=== PATIENT | female | born 1965 | race Caucasian/White ===

== ENCOUNTER 2018-06-25 05:36 | Emergency (ER) | payer BC ==
[2018-06-25] MEDS ORDERED: Famotidine 20 MG Tab PO ONE (05:54)
[2018-06-25] MEDS ORDERED: predniSONE 20 MG Tab PO ONE (05:54)
--- NOTE | 2018-06-25 05:54 | EDM.PDOC ---
<Herman Dumont - Last Filed: 06/25/18 06:55> ED HPI GENERAL MEDICAL PROBLEM - General Chief Complaint: ENT Problem Stated Complaint: THROAT IS SWOLLEN & SORE Time Seen by Provider: 06/25/18 05:44 - History of Present Illness INITIAL COMMENTS - FREE TEXT/NARRATIVE: 52-year-old female presents emergency room with a sore throat and throat tightness This started last night around 10:00 she noticed some discomfort in her throat and some tightness. This improved a little around 3:00 this morning but minimally. She's not had any fevers or chills. She has not had any recent illness. She's been around some people had a cough but she has not come down with this. Patient has difficult to control type 2 diabetes. Throat Pain Score (Numeric/FACES): 10 - Related Data Allergies Allergy/AdvReac Type Severity Reaction Status Date / Time No Known Allergies Allergy Verified 06/25/18 05:47 Home Meds: Home Meds Ergocalciferol (Vitamin D2) [Vitamin D2] 50,000 units PO WEEKLY 06/25/18 [ History] Famotidine [Heartburn Prevention] 40 mg PO Q24H #6 tablet 06/25/18 [Rx] Insulin Glarg,Human.Rec.Analog [Lantus Solostar] 70 unit SUBCUT BEDTIME [History] Insulin Lispro [Humalog Kwikpen U-100] 20 units SUBCUT TID 06/25/18 [History] predniSONE [Prednisone] 20 mg PO Q12H #20 tablet 06/25/18 [Rx] ED ROS ENT - Review of Systems Review Of Systems: See Below Constitutional: Reports: No Symptoms. Denies: Fever, Chills HEENT: Reports: Throat Pain Respiratory: Denies: Shortness of Breath, Cough, Sputum Cardiovascular: Reports: No Symptoms Endocrine: Reports: No Symptoms GI/Abdominal: Reports: No Symptoms : Reports: No Symptoms Neurological: Reports: No Symptoms ED EXAM, ENT - Physical Exam Exam: See Below Exam Limited By: No Limitations General Appearance: Alert, No Apparent Distress Eye Exam: Bilateral Eye: Normal Inspection Nose: Normal Inspection, Nasal Discharge Mouth/Throat: Normal Gums, Normal Lips, Other (Some worn dentition no acute problems history of pharynx is minimally erythematous tonsils are minimally enlarged no asymmetry) Head: Atraumatic, Normocephalic Neck: Normal Inspection, Supple, Non-Tender, Full Range of Motion. No: Lymphadenopathy (L), Lymphadenopathy (R) Respiratory/Chest: No Respiratory Distress, Lungs Clear, Normal Breath Sounds, No Accessory Muscle Use Cardiovascular: Normal Peripheral Pulses, Regular Rate, Rhythm, No Murmur GI/Abdominal: Normal Bowel Sounds, Soft, Non-Tender Back: Normal Inspection. No: CVA Tenderness (L), CVA Tenderness (R) Neurological: Alert, Oriented, Normal Cognition Course - Vital Signs Last Recorded V/S: Last Vital Signs Temp 35.6 C 06/25/18 05:43 Pulse 88 06/25/18 05:43 Resp 20 06/25/18 05:43 BP 158/100 H 06/25/18 05:43 Pulse Ox 99 06/25/18 05:43 - Orders/Labs/Meds Orders: Active Orders 24 hr Category Date Time Status CULTURE STREP A CONFIRMATION [] Stat Lab 06/25/18 05:54 Results STREP SCRN A RAPID W CULT CONF [] Stat Lab 06/25/18 05:54 Results Meds: Medications Discontinued Medications Generic Name Dose Route Start Last Admin Trade Name Freq PRN Reason Stop Dose Admin Diphenhydramine HCl 25 mg 06/25/18 06:11 06/25/18 06:24 Benadryl PO 06/25/18 06:12 25 mg ONETIME ONE Administration Famotidine 40 mg 06/25/18 05:54 06/25/18 06:02 Pepcid PO 06/25/18 05:55 40 mg ONETIME ONE Administration Prednisone 60 mg 06/25/18 05:54 06/25/18 06:02 Prednisone PO 06/25/18 05:55 60 mg ONETIME ONE Administration - Re-Assessments/Exams Free Text/Narrative Re-Assessment/Exam: 06/25/18 06:52 Return to the emergency room with any questions problems worsening symptoms. Rapid strep is negative but there is a confirmatory culture pending this takes 48 hours to get back. This sensation in her throat could also be related to a allergic reaction, you' ve been started on prednisone continue the prednisone 40 mg starting Wednesday morning for 3 days. Take the famotidine, or Pepcid, one twice daily for at least 1 week. Use Benadryl 25 mg every 6 hours if needed. Departure - Departure Time of Disposition: 06:55 Disposition: Home, Self-Care 01 Clinical Impression: Viral pharyngitis - Discharge Information Prescriptions: Famotidine [Heartburn Prevention] 40 mg PO Q24H #6 tablet predniSONE [Prednisone] 20 mg PO Q12H #20 tablet Referrals: Shelley Morgan PA-C [Primary Care Provider] - Forms: ED Department Discharge Additional Instructions: You were seen in the emergency room for the sensation of throat swelling. Workup in the ER included a rapid strep test, which returned negative. You do not have strep throat. On examination, no actual throat swelling was found. Based on your history, physical exam, and rapid strep test, you are most likely suffering from viral pharyngitis or postnasal drip, causing the sensation of throat swelling, without actually having any throat swelling. Consider drinking tea with honey or sucking on throat lozenges. If your symptoms persist, please follow-up with your PCP, Shelley Morgan. If any other problems, please do not hesitate to return to the ER. <Leondies Zamorano - Last Filed: 06/25/18 07:25> Course - Re-Assessments/Exams Free Text/Narrative Re-Assessment/Exam: 06/25/18 07:[address] Dumont. I examined the patient, and, like Dr. Dumont , I see no anatomic abnormality with the patient's throat, such as erythema or swelling. Her rapid strep test is negative. She states that she is feeling considerably better than when she arrived. I suspect that the patient has the sensation of throat swelling, without actually having any throat swelling. She is likely suffering from a viral URI or postnasal drip, although acid reflux is also a possibility. I will discharge her home. Departure - Departure Condition: Good - Discharge Information *PRESCRIPTION DRUG MONITORING PROGRAM REVIEWED*: Not Applicable *COPY OF PRESCRIPTION DRUG MONITORING REPORT IN PATIENT ODILIA: Not Applicable
[2018-06-25] MEDS ORDERED: diphenhydrAMINE 25 MG Cap PO ONE (06:11)
== END 2018-06-25 07:34 | disposition home or self-care (01) ==
LOC: JD.ED 05:36
DX: J02.9 Acute pharyngitis, unspecified (principal); Z79.4 Long term (current) use of insulin
CPT/HCPCS: 87081; 87430; 99283; A9270

== ENCOUNTER 2018-11-01 07:07 | Day surgery (SDC) | payer OTHER ==
[2018-11-01] MEDS ORDERED: Lidocaine 1% 4 ML ONE (07:36)
[2018-11-01] MEDS ORDERED: fentaNYL 100 MCG/2 ML SDV ONE (07:36)
[2018-11-01] MEDS ORDERED: Propofol 200 MG/20 ML SDV ONE (07:36)
[2018-11-01] MEDS ORDERED: Sodium Chloride 0.9% 10 ML Syringe FLUSH PRN (07:59)
[2018-11-01] MEDS ORDERED: Lidocaine 1%/Sod Bicarbonate in NS 8.4% 1 ML Syringe IDERM PRN (07:59)
[2018-11-01] MEDS ORDERED: Lactated Ringers 1,000 ML IV SCH (08:00)
--- NOTE | 2018-11-01 08:17 | PCM.PREANE ---
Preanesthetic Assessment - Anesthesia/Transfusion/Family Hx Anesthesia History: Prior Anesthesia Without Reaction Family History of Anesthesia Reaction: No - Review of Systems General: No Symptoms Pulmonary: No Symptoms Cardiovascular: No Symptoms Gastrointestinal: No Symptoms Neurological: Numbness (Bilateral Hands and Feet Occasionally), Pre-Existing Deficit (Back Pain, Spinal Stenosis, Pain 8/10 Chronic) Other: Reports: None (Morbid Obesity BMI 43.9), Diabetes (Blood glucose 144 mg/ dl at 0750), Thyroid Problems - Physical Assessment NPO Status Date: 11/01/18 NPO Status Time: 07:00 Vital Signs: Last Vital Signs Temp 36.0 C 11/01/18 07:30 Pulse 86 11/01/18 07:30 Resp 20 11/01/18 07:30 BP 145/79 H 11/01/18 07:30 Pulse Ox 95 11/01/18 07:30 Height: 1.42 m Weight: 88.904 kg ASA Class: 3 Mental Status: Alert & Oriented x3 Airway Class: Mallampati = 3 Dentition: Reports: Missing Tooth/Teeth (Right Upper) Thyro-Mental Finger Breadths: 3 Mouth Opening Finger Breadths: 3 ROM/Head Extension: Full Lungs: Clear to Auscultation, Normal Respiratory Effort Cardiovascular: Regular Rate, Regular Rhythm - Lab Values: Laboratory Last Values POC Glucose 144 mg/dL (70-105) H 11/01/18 07:50 - Allergies Allergies/Adverse Reactions: Allergies Allergy/AdvReac Type Severity Reaction Status Date / Time aspirin Allergy Rash Verified 11/01/18 08:12 metformin Allergy Stomach Verified 11/01/18 08:12 Upset - Acknowledgements Anesthesia Type Planned: MAC Pt an Appropriate Candidate for the Planned Anesthesia: Yes Alternatives and Risks of Anesthesia Discussed w Pt/Guardian: Yes Pt/Guardian Understands and Agrees with Anesthesia Plan: Yes PreAnesthesia Questionnaire Cardiovascular History: Reports: High Cholesterol Gastrointestinal History: Reports: Celiac Disease Other Gastrointestinal History: hematochezia 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 OB/BYN History: tubal ligation Musculoskeletal History: Reports: Back Pain, Chronic Other Musculoskeletal History: spinal stenosis Psychiatric History: Reports: Anxiety, Depression Endocrine/Metabolic History: Reports: Hypothyroidism, IDDM, Vitamin D Deficiency - Past Surgical History GI Surgical History: Reports: Cholecystectomy, Hernia, Inguinal Female Surgical History: Reports: Section - SUBSTANCE USE Smoking Status *Q: Never Smoker Recreational Drug Use History: No - HOME MEDS Home Medications: Home Meds Ergocalciferol (Vitamin D2) [Vitamin D2] 50,000 units PO WEEKLY 06/25/18 [ History] Insulin Glarg,Human.Rec.Analog [Lantus Solostar] 70 unit SUBCUT BEDTIME [History] Insulin Lispro [Humalog Kwikpen U-100] 20 units SUBCUT TID 06/25/18 [History] Cyclobenzaprine [Flexeril] 5 mg PO TID PRN 10/28/18 [History] RX: Estradiol [Estrace] 1 applic TOP ASDIRECTED 10/28/18 [History] RX: Levothyroxine 25 mcg PO DAILY 10/28/18 [History] RX: traMADol Hcl/Acetaminophen [Ultracet Tablet] 1 tab PO Q4HR PRN 10/28/18 [ History] atorvaSTATin [Lipitor] 40 mg PO BEDTIME 10/28/18 [History] - CURRENT (IN HOUSE) MEDS Current Meds: Current Medications Lactated Ringer's (Ringers, Lactated) 1,000 mls @ 125 mls/hr IV ASDIRECTED TANESHA Stop: 11/01/18 23:00 Last Admin: 11/01/18 07:50 Dose: 125 mls/hr Lidocaine/Sodium Bicarbonate (Buffered Lidocaine 1% In Ns 8.4%) 0.25 ml IDERM ONETIME PRN PRN Reason: Prior to IV Start Stop: 11/01/18 18:00 Last Admin: 11/01/18 07:50 Dose: 0.25 ml Sodium Chloride (Saline Flush) 10 ml FLUSH ASDIRECTED PRN PRN Reason: Keep Vein Open Stop: 11/01/18 18:00 Discontinued Medications Fentanyl (Sublimaze) Confirm Administered Dose 100 mcg .ROUTE .STK-MED ONE Stop: 11/01/18 07:37 Lidocaine HCl (Xylocaine-Mpf 1%) Confirm Administered Dose 4 mls @ as directed .ROUTE .STK-MED ONE Stop: 11/01/18 07:37 Propofol (Diprivan 20 Ml) Confirm Administered Dose 400 mg .ROUTE .STK-MED ONE Stop: 11/01/18 07:37
[2018-11-01] MEDS ORDERED: Midazolam 1 MG/ML 2 ML SDV ONE (10:37)
[2018-11-01] MEDS ORDERED: Lactated Ringers 1,000 ML ONE (12:17)
--- NOTE | 2018-11-01 12:30 | PCM48HPAN ---
Post Anesthesia Note - EVALUATION WITHIN 48HRS OF ANESTHETIC Vital Signs in Normal Range: Yes Patient Participated in Evaluation: Yes Respiratory Function Stable: Yes Airway Patent: Yes Cardiovascular Function Stable: Yes Hydration Status Stable: Yes Pain Control Satisfactory: Yes Nausea and Vomiting Control Satisfactory: Yes Mental Status Recovered: Yes Vital Signs: Last Vital Signs Temp 36.0 C 11/01/18 07:30 Pulse 86 11/01/18 07:30 Resp 20 11/01/18 07:30 BP 145/79 H 11/01/18 07:30 Pulse Ox 95 11/01/18 07:30
--- NOTE | 2018-11-01 13:01 | OR ---
DATE OF OPERATION: 11/01/2018 SURGEON: Randy Torres MD PREOPERATIVE DIAGNOSIS: 1. Question of celiac sprue. 2. History of polyps. POSTOPERATIVE DIAGNOSIS: 1. Question of celiac sprue. 2. History of polyps. OPERATION PERFORMED: Diagnostic EGD with biopsies and colonoscopy. FINDINGS: She had an unremarkable upper endoscopy. Her colonoscopy was also unremarkable. She had an excellent bowel prep. PATHOLOGY: 1. Duodenum. 2. Duodenal bulb. ESTIMATED BLOOD LOSS: Minimal. COMPLICATIONS: None. ANESTHESIA: MAC. DISPOSITION: Stable at the end of the procedure. INDICATION: The patient is a 53-year-old female, approximately 7 years out from her last colonoscopy. She had multiple polyps removed. She has also noted some food intolerance. She tested positive for celiac disease. She was referred for definitive diagnosis. She was offered a diagnostic EGD and a colonoscopy. She was fully informed of the major risks, benefits, and alternatives. These are detailed on my H and P. She gave informed consent of what was done. DESCRIPTION OF PROCEDURE: The patient was brought to the gastro suite and placed in the left lateral decubitus position. A bite block was placed. She was given MAC. I introduced the endoscope into the proximal esophagus. I advanced the scope with gentle forward pressure, keeping the lumen in view at all times. I passed the scope through the LES into the stomach. I thoroughly investigated the mucosa of the stomach. I found no evidence of ulcers. I retroflexed at the GE junction and found no sliding hiatal hernia. I also identified no evidence of Contreras esophagus on the way in. I introduced the scope into the duodenum. I passed the scope to the 4th portion. I biopsied randomly multiple bites of the duodenum. I then withdrew the scope into the bulb and biopsied the bulb in 3 locations. The remainder of her exam was unremarkable. I evacuated the air from the stomach and brought the scope into the esophagus. I thoroughly investigated the mucosa of the esophagus. I found no Contreras's, no esophagitis, no mucosal lesions or strictures. The scope was withdrawn. I then turned my attention to the colonoscopy. A digital rectal exam was performed with copious lubrication. I introduced the colonoscope into the rectum. I advanced the scope with gentle forward pressure, keeping the lumen in view at all times. I documented the cecum photographically for the chart. I slowly investigated the mucosa of the colon from the cecum back to the anus in an exam lasting 6 minutes. A thorough careful examination demonstrated no polyps, no diverticulosis. She had a normal exam and an excellent bowel prep. At the end of the procedure, the scope was withdrawn. PLAN: She will need another colonoscopy in 10 years. My office will notify her as to the results of her pathology. MMODAL /[id number]
== END 2018-11-01 13:13 | disposition home or self-care (01) ==
LOC: JD.SDS 07:07
PROVIDERS: ATTEND Surgery
DX: K90.0 Celiac disease (principal); K92.1 Melena; E78.00 Pure hypercholesterolemia, unspecified; E03.9 Hypothyroidism, unspecified; E55.9 Vitamin D deficiency, unspecified; E11.9 Type 2 diabetes mellitus without complications; M48.00 Spinal stenosis, site unspecified; Z88.6 Allergy status to analgesic agent; Z88.8 Allergy status to other drugs, medicaments and biological substances; Z86.010 Personal history of colon polyps; Z79.4 Long term (current) use of insulin; Z79.899 Other long term (current) drug therapy
CPT/HCPCS: 82962; J2001; J2250; J2704; J3010; J7120

== ENCOUNTER 2019-02-04 23:18 | Emergency (ER) | payer OTHER ==
--- NOTE | 2019-02-05 00:16 | EDM.PDOC ---
ED HPI GENERAL MEDICAL PROBLEM - General Chief Complaint: General Stated Complaint: RECENT SURGERY BREAST REDUCTION COMPLICATIONS Time Seen by Provider: 02/04/19 23:50 Source of Information: Reports: Patient, Family History Limitations: Reports: No Limitations - History of Present Illness INITIAL COMMENTS - FREE TEXT/NARRATIVE: This is a 53-year-old female. Wednesday morning she had breast reduction from a D cup to a B cup. This was done due to chronic back issues. They have noted over the last 24 hours that she has run a fever up to 101 and she has bloody discharge or drainage from the incision on the right breast. The left breast appears to be without drainage. They talked to Dr. Mendez who is personal trainer for plastics and he told them to come to the ER for evaluation. The patient has had no other symptoms of infection. Treatments PETROLEUM SAMPLER: Reports: Other (see below) Other Treatments PETROLEUM SAMPLER: 1/2 hydrocodone Bilateral Breast Pain Score (Numeric/FACES): 7 - Related Data Allergies Allergy/AdvReac Type Severity Reaction Status Date / Time aspirin Allergy Rash Verified 11/01/18 08:12 metformin Allergy Stomach Verified 11/01/18 08:12 Upset Home Meds: Home Meds Insulin Glarg,Human.Rec.Analog [Lantus Solostar] 70 unit SUBCUT BEDTIME [History] Insulin Lispro [Humalog Kwikpen U-100] 20 units SUBCUT TID 06/25/18 [History] Cyclobenzaprine [Flexeril] 5 mg PO TID PRN 10/28/18 [History] Estradiol [Estrace] 1 applic TOP ASDIRECTED 10/28/18 [History] Levothyroxine 25 mcg PO DAILY 10/28/18 [History] atorvaSTATin [Lipitor] 40 mg PO BEDTIME 10/28/18 [History] traMADol Hcl/Acetaminophen [Ultracet Tablet] 1 tab PO Q4HR PRN 10/28/18 [History ] Past Medical History Cardiovascular History: Reports: High Cholesterol Gastrointestinal History: Reports: Celiac Disease Other Gastrointestinal History: hematochezia 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: Other TRANSPORTATION SECURITY OFFICER History: tubal ligation Musculoskeletal History: Reports: Back Pain, Chronic Other Musculoskeletal History: spinal stenosis Psychiatric History: Reports: Anxiety, Depression Endocrine/Metabolic History: Reports: Hypothyroidism, IDDM, Vitamin D Deficiency - Past Surgical History GI Surgical History: Reports: Cholecystectomy, Hernia, Inguinal Female Surgical History: Reports: Section Social & Family History - Tobacco Use Smoking Status *Q: Never Smoker - Caffeine Use Caffeine Use: Reports: Tea Other Caffeine Use: caffeine free - Recreational Drug Use Recreational Drug Use: No ED ROS GENERAL - Review of Systems Review Of Systems: See Below Constitutional: Reports: Fever, Malaise. Denies: Chills HEENT: Reports: No Symptoms Respiratory: Denies: Shortness of Breath, Cough Cardiovascular: Reports: Other (Pain in the right breast and left breast where she's had the surgery) Endocrine: Reports: No Symptoms GI/Abdominal: Reports: No Symptoms : Reports: No Symptoms Musculoskeletal: Reports: No Symptoms Skin: Reports: Other (As per history of present illness) Neurological: Reports: No Symptoms Psychiatric: Reports: No Symptoms Hematologic/Lymphatic: Reports: No Symptoms ED EXAM, GENERAL - Physical Exam Exam: See Below Exam Limited By: No Limitations General Appearance: Alert, WD/WN, No Apparent Distress Eye Exam: Bilateral Eye: Normal Inspection Ears: Normal External Exam Nose: Normal Inspection Throat/Mouth: Normal Lips, Normal Voice, No Airway Compromise Head: Normocephalic Neck: Supple Respiratory/Chest: No Respiratory Distress, Lungs Clear, Normal Breath Sounds, Other (She has multiple incisions underneath the right breast and appeared to be draining serosanguineous and bloody type fluid but no purulent fluid. Removed all the dressing on that right breast seems to be coming from the lateral and posterior incision mostly, the left breast does not have staining of the dressing and so we did not remove that dressing.) Cardiovascular: Regular Rate, Rhythm, No Murmur GI/Abdominal: Soft, Non-Tender Back Exam: Decreased Range of Motion Extremities: Normal Inspection, Normal Range of Motion Neurological: Alert, Oriented Psychiatric: Normal Affect, Normal Mood Skin Exam: Warm, Dry Course - Vital Signs Last Recorded V/S: Last Vital Signs Temp 100.6 F 02/04/19 23:31 Pulse 96 02/04/19 23:31 Resp 20 02/04/19 23:31 BP 125/55 L 02/04/19 23:31 Pulse Ox 95 02/04/19 23:31 - Orders/Labs/Meds Orders: Active Orders 24 hr Category Date Time Status Blood Glucose Check, Bedside [RC] ONETIME Care 02/05/19 02:07 Active CXR [Chest 1V Frontal] [CR] Stat Exams 02/05/19 00:56 Ordered CULTURE WOUND [RM] Stat Lab 02/05/19 00:35 Received Labs: Laboratory Tests 02/05/19 02/05/19 02/05/19 Range/Units 00:34 00:34 02:01 WBC 14.22 H (3.98-10.04) K/mm3 RBC 3.28 L (3.98-5.22) M/mm3 Hgb 9.8 L D (11.2-15.7) gm/dl Hct 30.1 L (34.1-44.9) % MCV 91.8 D (79.4-94.8) fl MCH 29.9 (25.6-32.2) pg MCHC 32.6 (32.2-35.5) g/dl RDW Std Deviation 44.1 (36.4-46.3) fL Plt Count 234 (182-369) K/mm3 MPV 8.9 L (9.4-12.3) fl Neut % (Auto) 55.5 (34.0-71.1) % Lymph % (Auto) 35.5 (19.3-51.7) % [place] % (Auto) 8.1 (4.7-12.5) % Eos % (Auto) 0.5 L (0.7-5.8) Baso % (Auto) 0.2 (0.1-1.2) % Neut # (Auto) 7.89 H (1.56-6.13) K/mm3 Lymph # (Auto) 5.05 H (1.18-3.74) K/mm3 [place] # (Auto) 1.15 H (0.24-0.36) K/mm3 Eos # (Auto) 0.07 (0.04-0.36) K/mm3 Baso # (Auto) 0.03 (0.01-0.08) K/mm3 Manual Slide Review Abnormal smear POC Glucose 53 L (70-105) mg/dL C-Reactive Protein 5.7 H* (<1.0) mg/dL - Re-Assessments/Exams Free Text/Narrative Re-Assessment/Exam: 02/05/19 02:[address] Faye regarding the findings of the drainage. It seems that the drainage is mostly in the lateral incision on the right breast but there is no active bleeding or drainage when we took the dressing off. The skin edges appear to be clean there is no obvious inflammation of the skin edges or purulent drainage. Her blood sugar is 53 and we gave her some food here in the ER to bring it back up. She is not showing signs of hypoglycemia at this time. I went over with the daughter and the patient their need to call Dr. Median on Wednesday for recheck. We are not going to start antibiotics at this time since there is no clear-cut infection seen. Also that she needs to use her spirometer faithfully every hour to take deep breaths so she doesn't develop atelectasis. The patient and the daughter understand. Departure - Departure Time of Disposition: :18 Disposition: Home, Self-Care 01 Condition: Fair Clinical Impression: History of bilateral breast reduction surgery - Discharge Information *PRESCRIPTION DRUG MONITORING PROGRAM REVIEWED*: Not Applicable *COPY OF PRESCRIPTION DRUG MONITORING REPORT IN PATIENT ODILIA: Not Applicable Instructions: Breast Reduction, Care After Referrals: Shelley Morgan PA-C [Primary Care Provider] - Houston Medina MD [Ordering Only Provider] - Forms: ED Department Discharge Additional Instructions: Remember to breathe deeply every hour, continue to watch the drainage and use gauze as needed, call Dr. Medina on Wednesday for possible recheck, if there is worsening of her symptoms or she develops a fever greater than 102.5 return to the ER immediately - My Orders Last 24 Hours: My Active Orders 02/05/19 00:35 CULTURE WOUND [RM] Stat 02/05/19 00:56 CXR [Chest 1V Frontal] [CR] Stat 02/05/19 02:07 Blood Glucose Check, Bedside [RC] ONETIME - Assessment/Plan Last 24 Hours: My Active Orders 02/05/19 00:35 CULTURE WOUND [RM] Stat 02/05/19 00:56 CXR [Chest 1V Frontal] [CR] Stat 02/05/19 02:07 Blood Glucose Check, Bedside [RC] ONETIME
--- NOTE | 2019-02-06 06:36 | CR ---
Chest: Portable view of the chest was obtained. Comparison: No prior chest x-ray is available. Heart size is slightly prominent but felt accentuated from portable technique. Upper mediastinum is within normal limits. Slight nodularity is seen within the left midlung most likely due to vessels on end. Lungs otherwise are clear. Bony structures are grossly intact. Impression: 1. Findings believed to be incidental as described above. 2. Nothing acute is appreciated on portable chest x-ray. Diagnostic code #2 This report was dictated in [place] Standard Time
== END 2019-02-05 02:29 | disposition home or self-care (01) ==
LOC: JD.ED 23:18
DX: Z48.817 Encounter for surgical aftercare following surgery on the skin and subcutaneous tissue (principal); E11.9 Type 2 diabetes mellitus without complications; E78.00 Pure hypercholesterolemia, unspecified; F41.9 Anxiety disorder, unspecified; F32.9 Major depressive disorder, single episode, unspecified; E03.9 Hypothyroidism, unspecified; Z88.5 Allergy status to narcotic agent; Z88.8 Allergy status to other drugs, medicaments and biological substances; Z79.4 Long term (current) use of insulin; Z79.899 Other long term (current) drug therapy
CPT/HCPCS: 36415; 71045; 71045-26; 82962; 85025; 86140; 87075; 87205; 99282; 99283-25

== ENCOUNTER 2024-05-01 19:47 | Emergency (ER) | payer SELFPAY ==
[2024-05-01 20:58] LABS: APPEARANCE,URINE CLEAR (Clear); BILIRUBIN,URINE NEGATIVE (Negative); COLOR,URINE YELLOW (Yellow); GLUCOSE,URINE NEGATIVE (Negative); KETONES,URINE NEGATIVE (Negative); LEUKOCYTE ESTERASE,URINE NEGATIVE (Negative); NITRITE,URINE NEGATIVE (Negative); OCCULT BLOOD,URINE NEGATIVE (Negative); PH,URINE 6.5 (5.0-8.0); PROTEIN,URINE NEGATIVE (Negative); UROBILINOGEN,URINE 0.2 (0.2-1.0)
[2024-05-01 21:01] LABS: BASOPHILS ABSOLUTE AUTO 0.1 K/mm3 (0.0-0.2); EOSINOPHILS ABSOLUTE AUTO 0.3 K/mm3 (0.0-0.4); EOSINOPHILS PERCENT AUTO 3.8 % (0.0-6.0); HEMATOCRIT 40.6 % (37.0-47.0); IMMATURE GRAN ABSOLUTE AUTO 0.02 K/mm3 (0.00-0.05); IMMATURE GRAN PERCENT AUTO 0.3 % (0.0-0.4); LYMPHOCYTES PERCENT AUTO 42.1 % (24.0-44.0); MEAN CORPUSCULAR HEMOGLOBIN 30.9 pg (28.0-32.0); MEAN CORPUSCULAR HGB CONC 34.5 g/dl (32.0-36.0); MEAN CORPUSCULAR VOLUME 89.6 fl (83.0-99.0); MONOCYTES ABSOLUTE AUTO 0.7 K/mm3 (0.0-0.8); MONOCYTES PERCENT AUTO 9.9 % (0.0-8.0); NEUTROPHILS PERCENT AUTO 42.9 % (41.0-71.0); PLATELET COUNT,PLT 237 K/mm3 (150-400); RED BLOOD CELL COUNT 4.53 M/mm3 (4.10-5.30); WHITE BLOOD CELL COUNT,WBC 7.08 K/mm3 (3.9-11.3)
[2024-05-01 21:27] LABS: BACTERIA,URINE FEW /hpf (FEW); MUCUS,URINE NOT SEEN /hpf (FEW); RBC,URINE 0-5 /hpf (0-5); SQUAMOUS EPITHELIAL CELLS,UR 0-5 /hpf (0-5); WBC,URINE 0-5 /hpf (0-5)
[2024-05-01 21:49] LABS: A/G RATIO 0.7 (1-2); ALBUMIN 3.3 g/dl (3.4-5.0); ANION GAP 11.9 (5-15); BILIRUBIN TOTAL 0.3 mg/dL (0.2-1.0); CALCIUM 9.1 mg/dL (8.5-10.1); EST CRCL DRUG DOSING (CG) 42.97 mL/min; POTASSIUM,K 3.9 mEq/L (3.5-5.1); PROTEIN TOTAL,TP 7.8 g/dl (6.4-8.2)
== END 2024-05-01 22:13 | disposition home or self-care (01) ==
LOC: JD.ED 19:47
DX: E11.649 Type 2 diabetes mellitus with hypoglycemia without coma (principal); E78.00 Pure hypercholesterolemia, unspecified; E03.9 Hypothyroidism, unspecified; Z86.16 Personal history of COVID-19; Z90.49 Acquired absence of other specified parts of digestive tract; Z79.899 Other long term (current) drug therapy; Z79.890 Hormone replacement therapy; Z79.4 Long term (current) use of insulin; Z88.8 Allergy status to other drugs, medicaments and biological substances; Z88.6 Allergy status to analgesic agent
CPT/HCPCS: 36415; 71046; 71046-26; 80053; 81001; 82947; 85025; 99283; 99285